=== PATIENT | male | born 1955 | race Asian ===

== ENCOUNTER 2018-04-20 17:58 | Inpatient (IN) | payer BC ==
[~2018-04-20] VITALS: Ht 172.7 cm; Wt 58.3 kg
[~2018-04-20 17:58] MED LIST: CARVEDILOL3.125 M1 PO; CEL500 PO; CLONIDINE HCL0.1 MG PO; COZ25; FERROUS SULFAT325 M2 PO; GLUCOTROL5 MG; INDOMETHACIN75 MG PO; LAC PO; LANTUS SOLOS100 U/M1 SQ; LIPI10 PO; METOPROLOL SUCC50 M2; PEPCID20 MG PO; PREDNISONE5 MG PO; PROCARDIA XL90 MG PO; PROTOPIC0.1%; ROC1I IV; SENSIPAR60 M1 PO; VITAMIN D1 TAB PO; VITC100 PO; ZITHROMAX Z-PA250 MG PO
[2018-04-20 18:03] VITALS: Ht 172.7 cm; Wt 58.3 kg
[2018-04-20 20:09] LABS: PLATELET COUNT 277 x10^3mcL (130-400); RED CELL DISTRIBUTION WIDTH 13.8 % (11.5-14.5)
[2018-04-20 20:17] LABS: CARBON DIOXIDE 25.1 mmol/L (21-32); CREATININE SERUM 2.1 mg/dL (0.7-1.3)
[2018-04-20 20:21] LABS: BILIRUBIN TOTAL 0.82 mg/dL (0.20-1.00)
[2018-04-20 20:46] LABS: TOTAL PROTEIN, SERUM 8.3 g/dL (6.4-8.2)
[2018-04-20 21:00] LABS: UA SPECIFIC GRAVITY 1.025 (1.005-1.035); microscopic required? YES; urine erythrocyte TRACE (NEGATIVE)
[2018-04-20 21:23] LABS: BAND NEUTROPHIL 24 % (0-10); BASOPHIL 0 % (0-2); MONOCYTE 1 % (0-7); PLATELET MORPHOLOGY PLATELETS NORMAL; SEGMENTED NEUTROPHILS 73 % (37-75); rbc morphology (normal/abnorm) NORMAL (NORMAL)
[2018-04-20 21:54] LABS: AMPHETAMINE QUAL UR NONE DETECTED (See below)
[2018-04-20 21:59] LABS: MAGNESIUM 1.7 mg/dL (1.8-2.4); PHOSPHOROUS 3.6 mg/dL (2.5-4.9)
[2018-04-20 22:06] LABS: T3 TOTAL 0.78 ng/mL
[2018-04-20 22:07] LABS: CHOLESTEROL/HDL RATIO 3.6
[2018-04-20 22:21] LABS: FREE T4 1.17 ng/dL (0.76-1.46); FREE THYROXINE INDEX 3.2 ug/dL (1.4-4.5)
[2018-04-21 00:55] VITALS: BP 156/75
[2018-04-21 05:34] VITALS: BP 146/72
[2018-04-21 06:33] LABS: PLATELET COUNT 221 x10^3mcL (130-400)
[2018-04-21 06:37] LABS: CALCIUM 8.9 mg/dL (8.5-10.1); CARBON DIOXIDE 21.3 mmol/L (21-32); CREATININE SERUM 1.5 mg/dL (0.7-1.3); POTASSIUM SERUM 4.8 mmol/L (3.5-5.1)
[2018-04-21 09:01] VITALS: BP 146/70
[2018-04-21 11:09] LABS: ATYPICAL LYMPH 2 %; BAND NEUTROPHIL 3 % (0-10); BASOPHIL 0 % (0-2); MONOCYTE 4 % (0-7); SEGMENTED NEUTROPHILS 91 % (37-75)
[2018-04-21 11:10] LABS: PLATELET MORPHOLOGY PLATELETS DECREASED
[2018-04-21 11:14] LABS: ovalocyte/elliptocyte 1+; rbc morphology (normal/abnorm) ABNORMAL (NORMAL)
[2018-04-21 15:18] VITALS: BP 142/61
[2018-04-21] MEDS ORDERED: PROGRAF0.5 MG PO (17:28)
[2018-04-21] MEDS ORDERED: PROGRAF1 MG PO (17:29)
[2018-04-21 17:45] VITALS: BP 127/62
[2018-04-21 20:34] VITALS: BP 107/57
[2018-04-22 05:12] VITALS: BP 111/55
[2018-04-22 06:15] LABS: PLATELET COUNT 210 x10^3mcL (130-400); RED CELL DISTRIBUTION WIDTH 13.7 % (11.5-14.5)
[2018-04-22 06:20] LABS: CALCIUM 8.9 mg/dL (8.5-10.1); CARBON DIOXIDE 20.7 mmol/L (21-32); POTASSIUM SERUM 4.5 mmol/L (3.5-5.1)
[2018-04-22 07:05] LABS: BASOPHIL % 0 % (0-2)
[2018-04-22 08:37] VITALS: BP 123/57
[2018-04-22 16:31] VITALS: BP 144/67
[2018-04-22 19:15] VITALS: BP 155/70
[2018-04-23 06:15] VITALS: BP 205/80
[2018-04-23 06:26] LABS: BASOPHIL % 0.3 % (0-2); PLATELET COUNT 197 x10^3mcL (130-400); RED CELL DISTRIBUTION WIDTH 13.7 % (11.5-14.5)
[2018-04-23 06:31] LABS: CALCIUM 8.9 mg/dL (8.5-10.1); CARBON DIOXIDE 20.6 mmol/L (21-32); CREATININE SERUM 1.9 mg/dL (0.7-1.3); POTASSIUM SERUM 4.2 mmol/L (3.5-5.1)
[2018-04-23 06:52] VITALS: BP 193/72
[2018-04-23 07:21] VITALS: BP 138/61
[2018-04-23 08:15] VITALS: BP 112/54
[2018-04-23 14:20] VITALS: BP 105/54
== END 2018-04-23 16:17 | disposition home or self-care (01) | DRG 388 ==
LOC: ED 17:58 → MU 21:28
PROVIDERS: Emergency Medicine; Internal Medicine
DX: K56.609 Unspecified intestinal obstruction, unspecified as to partial versus complete obstruction (principal); N17.0 Acute kidney failure with tubular necrosis; N13.30 Unspecified hydronephrosis; Z94.0 Kidney transplant status; I10 Essential (primary) hypertension; E86.0 Dehydration; Z90.5 Acquired absence of kidney; K21.9 Gastro-esophageal reflux disease without esophagitis; Z82.49 Family history of ischemic heart disease and other diseases of the circulatory system; Z80.9 Family history of malignant neoplasm, unspecified; E11.65 Type 2 diabetes mellitus with hyperglycemia; D72.829 Elevated white blood cell count, unspecified; Z99.2 Dependence on renal dialysis
CPT/HCPCS: 82962; 83880; 84439; J2405; J2543; J3490; J7030; J7512; J7517; Q0092; Q9967